=== PATIENT | male | born 1945 | race Caucasian/White ===

== ENCOUNTER 2016-05-04 13:22 | Outpatient (CLI) | payer OTHER, BC ==
--- NOTE | 2016-05-04 13:43 | DIAGNOSTIC IMAGING REPORT ---
PROCEDURE: XR CHEST 2 VIEW INDICATION: NEOPLASM OF UNSPECIFIED BEHAVIOR OF BLADDER TECHNIQUE: PA and lateral views. COMPARISON: None. FINDINGS: Lungs are clear. Heart and mediastinum are normal. Thorax is normal. IMPRESSION: 1. Negative chest.
== END 2016-05-04 23:00 ==
LOC: XR SRH 13:22
DX: D49.4 Neoplasm of unspecified behavior of bladder (principal)